=== PATIENT | female | born 1960 | race Asian ===

== ENCOUNTER → 2021-01-11 10:00 | Outpatient (BNVA) | payer OTHER, SELFPAY | PROVIDERS: Family Provider Nurse Practitioner Family; PCP Nurse Practitioner Family; Visit Provider Internal Medicine | DX: B19.10 Unspecified viral hepatitis B without hepatic coma (principal) | CPT/HCPCS: 80053; 82105; 86705; 86706; 86709; 86803; 87340; 87517 ==

== ENCOUNTER 2021-01-15 08:04 | Outpatient (CLI) | payer OTHER, SELFPAY ==
--- NOTE | 2021-01-15 08:11 | US_ITS ---
WS: [id number] ULTRASOUND ABDOMEN LIMITED CLINICAL INFORMATION: ELEVATED LFT'S/HEPATITIS B COMPARISON: None. FINDINGS: Liver Size: Normal. Craniocaudal length: 11.3 cm. Echogenicity: Normal. Surface nodularity: None. Mass (size and location): Several small hepatic cysts largest measuring approximately 13 mm. Bile ducts Intrahepatic ducts: Normal. Common bile duct diameter: 0.4 cm. Gallbladder Gallbladder polyps. Gallstones: None. Gallbladder sludge: None. Gallbladder wall thickening: None. Pericholecystic fluid: None. Sonographic Louis sign: Absent. Pancreas Normal as visualized. Right kidney: Several simple right kidney cysts largest measuring 3.4 x 2.6x 3.1 cm Hydronephrosis: None. Size: 10.2 cm x 5.6 cm x 4.9 cm. Abdominal aorta and IVC Visualized portions are normal. Ascites: None. US/US abdomen limited [id number] IMPRESSION: 1. Gallbladder polyps. No wall thickening. Normal common bile duct. 2. Right renal cysts the largest measuring 3.4 x 2.6 x 3.1 CM. No hydronephros is in right kidney. 3. Several incidental simple right hepatic cysts. The largest measures approxi mately 13 mm.
== END 2021-01-15 08:05 | disposition home or self-care (01) ==
PROVIDERS: PCP Nurse Practitioner Family; Visit Provider Nurse Practitioner Family
DX: R79.89 Other specified abnormal findings of blood chemistry (principal); B19.10 Unspecified viral hepatitis B without hepatic coma; K76.89 Other specified diseases of liver; Q61.02 Congenital multiple renal cysts; K82.4 Cholesterolosis of gallbladder
CPT/HCPCS: 76705

== ENCOUNTER → 2021-03-09 09:19 | Outpatient (BNVA) | payer OTHER, SELFPAY | PROVIDERS: PCP Nurse Practitioner Family; Visit Provider Internal Medicine | DX: B19.10 Unspecified viral hepatitis B without hepatic coma (principal) | CPT/HCPCS: 80053; 85025 ==

== ENCOUNTER → 2021-07-09 08:59 | Outpatient (BNVA) | payer OTHER, SELFPAY | PROVIDERS: PCP Nurse Practitioner Family; Visit Provider Internal Medicine | DX: B19.10 Unspecified viral hepatitis B without hepatic coma (principal) | CPT/HCPCS: 80053; 87517 ==

== ENCOUNTER → 2022-01-02 11:22 | Outpatient (BNVA) | payer OTHER, SELFPAY | PROVIDERS: PCP Nurse Practitioner Family; Visit Provider Internal Medicine | DX: B19.10 Unspecified viral hepatitis B without hepatic coma (principal) | CPT/HCPCS: 80053; 86705; 86706; 87340 ==

== ENCOUNTER 2022-06-25 16:02 | Outpatient (CLI) | payer OTHER, SELFPAY ==
--- NOTE | 2022-06-25 16:08 | CT_ITS ---
WS: [id number] CT NECK TECHNIQUE: Noncontrast CT of the neck with coronal and sagittal reformatted images. CLINICAL INFORMATION: MASS OF LEFT SIDE OF NECK, LOCALIZED SWELLING, MASS AND LUMP COMPARISON: None. DLP: 181.[address] scans at [facility] use at least one of these dose optimization techniques: automated e xposure control; mA and/or kV adjustment per patient size (includes targeted exams where dose is matc hed to clinical indication); or iterative reconstruction. FINDINGS: Palpable marker LEFT neck. Markedly enlarged heterogeneous multinodular thyroid. Associated mass effe ct and symmetric narrowing of the airway at the thoracic inlet. Largest nodules in the LEFT thyroid m easuring up to 3 CM. Recommend further evaluation with ultrasound thyroid. Airway narrowing measures approximately 5 mm in minimum dimension. Lung apices are well aerated. Mastoid air cells are well aerated. Paranasal sinuses are well aerated and partially visualized. Normal visualized posterior nasopharynx. Normal prevertebral fat. Beam Hard ening artifact involving the mandible due to dental artifact. A few incidental tonsillar calcificatio ns. Parotid glands and submandibular glands are normal. Sclerotic lesions involving the C2 and C7 vertebr al bodies likely benign bone islands. Mild spondylitic changes cervical spine. No cervical lymphadeno catherine. CT/CT neck wo con [id number] IMPRESSION: 1. No evidence of supraglottic or glottic mass. 2. Markedly enlarged multinodular thyroid with symmetric moderate narrowing of the airway at the thoracic inlet with a minimum dimension of 5 mm. 3. Enlarged multinodular thyroid with the largest nodules on the LEFT measurin g up to 3 cm. This can be further evaluated with thyroid ultrasound. 4. No cervical lymphadenopathy. 5. Normal salivary glands.
== END 2022-06-25 16:03 | disposition home or self-care (01) ==
LOC: RAD 16:03
PROVIDERS: PCP Nurse Practitioner Family; Visit Provider Nurse Practitioner Family
DX: E04.2 Nontoxic multinodular goiter (principal); R22.1 Localized swelling, mass and lump, neck
CPT/HCPCS: 70490

== ENCOUNTER → 2022-11-26 10:10 | Outpatient (BNVA) | payer OTHER, SELFPAY | PROVIDERS: PCP Nurse Practitioner Family; Visit Provider Internal Medicine | DX: Z76.89 Persons encountering health services in other specified circumstances (principal); B19.10 Unspecified viral hepatitis B without hepatic coma; E04.9 Nontoxic goiter, unspecified; E04.1 Nontoxic single thyroid nodule | CPT/HCPCS: 36415; 80053; 84439; 84443; 86705; 86706; 87340 ==

== ENCOUNTER → 2022-12-18 08:45 | Outpatient (BNVA) | payer OTHER, SELFPAY | PROVIDERS: PCP Family Medicine; Visit Provider Family Medicine | DX: B19.10 Unspecified viral hepatitis B without hepatic coma (principal); I10 Essential (primary) hypertension; E04.1 Nontoxic single thyroid nodule; Z76.89 Persons encountering health services in other specified circumstances; E04.9 Nontoxic goiter, unspecified | CPT/HCPCS: 80053; 81000; 87340; 87350; 87517; 87806 ==

== ENCOUNTER 2023-01-16 08:08 | Outpatient (CLI) | payer OTHER, SELFPAY ==
--- NOTE | 2023-01-16 08:00 | US_ITS ---
WS: [id number] RIGHT UPPER QUADRANT ULTRASOUND HISTORY: liver assessment due to chronic hep b COMPARISON: 01/15/2021 Liver: 12.9 cm in length. Normal size liver. Subcapsular cyst measures 1.3 x 0.9 x 1.4 cm. No solid m ass or increased vascularity. Portal Vein: Normal hepatopetal flow with monophasic waveform. Gallbladder: Normally distended gallbladder. Several nonshadowing, noncalcified masses projected to t he gallbladder lumen. One of these masses is slightly lobulated and larger in size than on the prior study. Attachment of the gallbladder wall is by a pedicle. Lobulated mass measures 11 x 8 mm. CBD: 0.4 cm Pancreas: Normal size and echogenicity. Right kidney: 10.5 cm in length. Normal size kidney. Central parapelvic cyst measures 4.1 x 2.9 x 2.8 cm. No solid mass. Aorta and IVC: Unremarkable abdominal aorta and IVC. No ascites. US/US abdomen limited [id number] IMPRESSION: 1. Noncalcified soft tissue masses project into the gallbladder lumen consiste nt with polyps. These polyps were described on the prior ultrasound. The larges t polyp is lobulated measuring 11 x 8 mm. Due to its size and appearance consid er evaluation by surgery for cholecystectomy. 2. Hepatic cysts. No solid mass.
== END 2023-01-16 08:09 | disposition home or self-care (01) ==
LOC: RAD 08:12
PROVIDERS: PCP Family Medicine; Visit Provider Family Medicine
DX: B19.10 Unspecified viral hepatitis B without hepatic coma (principal); K76.89 Other specified diseases of liver
CPT/HCPCS: 76705

== ENCOUNTER 2023-07-17 01:52 | Emergency (ER) | payer OTHER, SELFPAY ==
[2023-07-17 01:59] VITALS: BP 169/98; PULSE 118; RESP 16; TEMP 37; O2SAT 98; BMI 24.4
--- NOTE | 2023-07-17 02:01 | ECG_ITS ---
[facility] Test Date: 2023-07-17 Pat Name: Eve Vallejo Department: Room: Gender: Female Oxygen Therapist: : 1960 Requested By: Babita Esparza Order Number: [id number] Marian MD: Zeus Resendiz M.D. Measurements Intervals [place] Rate: 106 P: 44 FL: 156 QRS: 19 QRSD: 72 T: 65 QT: 325 QTc: 433 Interpretive Statements SINUS TACHYCARDIA POSSIBLE LEFT ATRIAL ENLARGEMENT [-0.1mV P-WAVE IN V1/V2] NONSPECIFIC T-WAVE ABNORMALITY ABNORMAL RHYTHM ECG No previous ECG available for comparison Electronically Signed On 07-17-2023 15:55:09 CDT by Zeus Resendiz M.D. [id number]
[2023-07-17 02:02] VITALS: BP 169/98; PULSE 114; RESP 18; O2SAT 98
--- NOTE | 2023-07-17 02:02 | W.ED.FEMALGU ---
HPI - Female Genitourinary General: Chief complaint: Urogenital-Female Stated complaint: abdomen pain, blood in urine Time Seen by Provider: 07/17/23 01:54 Source: patient Mode of arrival: ambulatory Limitations: no limitations History of Present Illness: 63-year-old female states that starting yesterday at 5 PM she has been having dysuria states anytime she urinates it is quite painful she had some slight blood in her urine as well. She denies any abdominal pain denies any pain currently its only when she urinates she denies fever denies vomiting or diarrhea. Associated symptoms: Deny abdominal pain, headache(s) or nausea Review of Systems Const: Denies: fever(s), chills, body aches or change in appetite ENMT: Denies: throat pain or dental pain Card: Denies: chest pain Resp: Denies: dyspnea GI: Denies: abdominal pain, nausea, vomiting or diarrhea : Reports: dysuria and hematuria Musc: Denies: neck pain or back pain Skin/Breast: Denies: rash Neuro: Denies: headache(s) PFSH ED PFSH: Medical History Breast screening declined Cervical cancer screening declined Colon cancer screening declined Cyst, thyroid Essential (primary) hypertension Goiter Hepatitis B Surgical History History of lumpectomy of right breast Family History (Updated 12/18/22 @ 08:39 by Estela Pineda MD) Other Family history normal Social History Smoking and tobacco status: never smoked Alcohol intake: never Substance/Drug Use: never Adopted: No Lives independently: Yes Household members: none Marital status: / Number of children: 4 Number of grandchildren: 5 service: No Current occupational status: unemployed Previous occupational history: parking lot attendant and cashier Agree to transfusion: Yes Physical Exam Const: COMMON NORMALS: no acute distress, patient oriented x3 and healthy appearing HENMT: COMMON NORMALS: normocephalic and atraumatic HEAD & SCALP: normocephalic and atraumatic Eye: COMMON NORMALS: conjunctivae normal CONJUNCTIVA: Yes conjunctivae normal Neck/C-Spine: COMMON NORMALS: full ROM and supple Chest: COMMONS NORMALS: normal inspection of the chest and normal palpation of entire chest wall Resp: COMMON NORMALS: normal respiratory effort, No retractions, No use of accessory muscles and clear to auscultation bilaterally AUSCULTATION: clear to auscultation bilaterally Cardio: COMMON NORMALS: regular rhythm and No murmurs present (Cardio) RATE: tachycardic RHYTHM: regular rhythm GI: COMMON NORMALS: Normal to inspection, nondistended, normoactive bowel sounds present, Soft to palpation, non-tender and no masses PALPATION: Yes Soft to palpation Extremity: COMMON NORMALS: normal to inspection and full ROM Neuro: COMMON NORMALS: patient oriented x3, moves all extremities and no focal motor deficits Psych: COMMON NORMALS: mental status grossly normal, Normal thought process present and cooperative THOUGHT PROCESS: Normal thought process present Skin: COMMON NORMALS: no rashes or lesions noted and no wounds GENERAL SKIN EXAM: no rashes or lesions noted Course Vital Signs: Vital signs: Vital Signs Temperature 98.6 F 07/17/23 01:59 Pulse Rate 114 H 07/17/23 02:02 Respiratory Rate 18 07/17/23 02:02 Blood Pressure 169/98 07/17/23 02:02 Pulse Oximetry 98 07/17/23 02:02 Oxygen Delivery Me thod Room Air 07/17/23 02:02 MDM - Female Medical Decision Making Patient presents with hematuria along with dysuria UA is consistent with a UTI she has no pain on exam no pain at all no signs of a kidney stone we will place her on Keflex she is stable for discharge she is to follow-up with PCP and return if worsening. Medical Records I reviewed the patient's medical records. Lab Data I reviewed the patient's lab results. 07/17/23 02:20 07/17/23 02:20 Laboratory Results WBC 13.42 10^3/uL (3.29-11.43) H 07/17/23 02:20 RBC 4.55 10^6/uL (3.85-5.65) 07/17/23 02:20 Hgb 13.70 g/dL (11.27-16.99) 07/17/23 02:20 Hct 40.4 % (36-47) 07/17/23 02:20 MCV 88.8 fl (85-98) 07/17/23 02:20 MCH 30.1 pg (27-33) 07/17/23 02:20 MCHC 33.9 g/dL (30-55) 07/17/23 02:20 RDW 13.1 % (12.1-15.1) 07/17/23 02:20 Plt Count 255 10^3/cmm (157-399) 07/17/23 02:20 MPV 8.9 fL (7.4-10.4) 07/17/23 02:20 Neut % (Auto) 80.6 % 07/17/23 02:20 Lymph % (Auto) 8.1 % 07/17/23 02:20 [place] % (Auto) 7.9 % 07/17/23 02:20 Eos % (Auto) 2.3 % 07/17/23 02:20 Baso % (Auto) 0.7 % 07/17/23 02:20 Neut # (Auto) 10.81 10^3/uL (1.8-7.7) H 07/17/23 02:20 Lymph # (Auto) 1.1 10^3/uL (0.8-4.8) 07/17/23 02:20 [place] # (Auto) 1.1 10^3/uL (0.2-0.9) H 07/17/23 02:20 Eos # (Auto) 0.3 10^3/uL (0.0-0.8) 07/17/23 02:20 Baso # (Auto) 0.1 10^3/uL (0.0-0.1) 07/17/23 02:20 Nucleated RBC % (auto) 0 % 07/17/23 02:20 Nucleated RBCs # 0.0 /100WBC 07/17/23 02:20 Sodium 139 mmol/L (136-145) 07/17/23 02:20 Potassium 3.8 mmol/L (3.5-5.1) 07/17/23 02:20 Chloride 102 mmol/L (98-107) 07/17/23 02:20 Carbon Dioxide 22 mmol/L (22-29) 07/17/23 02:20 Anion Gap 18.8 (5-19) 07/17/23 02:20 BUN 9 mg/dL (8-23) 07/17/23 02:20 Creatinine 0.9 mg/dL (0.5-0.9) 07/17/23 02:20 GFR Calculation 63.4 mL/min (90-130) L 07/17/23 02:20 Glucose 141 mg/dL (65-115) H 07/17/23 02:20 Calculated Osmolality 289 mOsm/kg (285-295) 07/17/23 02:20 Calcium 9.4 mg/dL (8.5-10.5) 07/17/23 02:20 Total Bilirubin 0.5 mg/dL (0.15-1.2) 07/17/23 02:20 AST 27 U/L (0-32) 07/17/23 02:20 ALT 24 U/L (0-33) 07/17/23 02:20 Alkaline Phosphatase 108 U/L (35-105) H 07/17/23 02:20 Total Protein 8.3 g/dL (6.6-8.7) 07/17/23 02:20 Albumin 5.2 g/dL (3.5-5.2) 07/17/23 02:20 Globulin 3.1 g/dL (1.3-4.6) 07/17/23 02:20 Lipase 64 U/L (13-60) H 07/17/23 02:20 Urine Color Light yellow (Yellow) 07/17/23 02:00 Urine Appearance Cloudy (CLEAR) A 07/17/23 02:00 Urine pH 5 (5-7) 07/17/23 02:00 Ur Specific [place] 1.010 (1.005-1.030) 07/17/23 02:00 Urine Protein 1+ (Negative) H 07/17/23 02:00 Urine Glucose (UA) Norm (Normal) 07/17/23 02:00 Urine Ketones Negative (Negative) 07/17/23 02:00 Urine Blood 3+ (Negative) H 07/17/23 02:00 Urine Nitrate Negative (Negative) 07/17/23 02:00 Urine Bilirubin Neg (Negative) 07/17/23 02:00 Urine Urobilinogen Neg mg/dL (Negative) 07/17/23 02:00 Ur Leukocyte Esterase 2+ (Negative) H 07/17/23 02:00 Urine RBC 40-50 /hpf (0-2) H 07/17/23 02:00 Urine WBC 40-55 /hpf (0-5) H 07/17/23 02:00 Ur Squamous Epith Cells None /hpf (0-5) 07/17/23 02:00 Amorphous Sediment Not Reportable 07/17/23 02:00 Urine Bacteria Trace /hpf (NONE) 07/17/23 02:00 No radiology studies performed this visit Discharge Plan Discharge Patient Disposition: Home Clinical Impression: Urinary tract infection Condition: Stable Prescriptions: New cephalexin 500 mg capsule 500 mg PO TID 7 Days Qty: 21 0RF No Action amlodipine 5 mg tablet 5 mg PO DAILY Ocuvite Adult 50 Plus 250-5-1 mg capsule 1 cap PO DAILY Algal [place]-3 DHA 200 mg capsule PO DAILY entecavir 0.5 mg tablet 0.5 mg PO DAILY Qty: 90 3RF Discharge Orders: Discharge ED (Routine); Ordered 07/17/23 Ordered By: Babita Esparza Referrals: Estela Pineda MD [Primary Care Provider] - 1-3 days Discharge Diet: Advance as tolerated Discharge Activity: Resume usual activity Patient Instructions: Urinary Tract Infection in Women (ED) Coding Level of Care Code ED Vacuum Tester Cans for Crystal Llanos
[2023-07-17 02:16] LABS: Add Urine Microscopic? YES; Bilirubin Urine Neg (Negative); Blood Urine 3+ (Negative); Glucose Urine UA Norm (Normal); Ketones Urine Negative (Negative); Leukocyte Esterase Urine 2+ (Negative); Nitrate Urine Negative (Negative); Protein Urine 1+ (Negative); Urine Appearance Cloudy (CLEAR); Urine Color Light yellow (Yellow); Urobilinogen Urine Neg (Negative); pH Urine 5 (5-7)
[2023-07-17] MEDS: sodium chloride 0.9% 1,000 ML 999 ML IV (02:16)
[2023-07-17 02:17] LABS: Add Urine Culture? Yes; Bacteria Urine TRACE /hpf; RBC Urine 40-50 /hpf (0-2); WBC Urine 40-55 /hpf (0-5)
[2023-07-17 02:24] LABS: Basophils # 0.1 10^3/uL (0.0-0.1); Basophils % 0.7 %; Eosinophils # 0.3 10^3/uL (0.0-0.8); Eosinophils % 2.3 %; Hematocrit 40.4 % (36-47); Lymphocytes # 1.1 10^3/uL (0.8-4.8); Lymphocytes % 8.1 %; Mean Corpuscular HGB Conc 33.9 g/dL (30-55); Mean Corpuscular Hemoglobin 30.1 pg (27-33); Mean Corpuscular Volume 88.8 fl (85-98); Mean Platelet Volume 8.9 fL (7.4-10.4); Monocytes # 1.1 10^3/uL (0.2-0.9); Monocytes % 7.9 %; Neutrophils # 10.81 10^3/uL (1.8-7.7); Neutrophils % 80.6 %; Nucleated Red Blood Cells % 0 %; Platelet Count 255 10^3/cmm (157-399); Red Blood Count 4.55 10^6/uL (3.85-5.65); Red Cell Distribution Width 13.1 % (12.1-15.1); White Blood Count 13.42 10^3/uL (3.29-11.43)
[2023-07-17] MEDS: cefTRIAXone 1,000 MG in sodium chloride 0.9% (plus) 50 ML 100 MG IV (02:27)
[2023-07-17 02:52] LABS: Alanine Aminotransferase 24 U/L (0-33); Albumin Level 5.2 g/dL (3.5-5.2); Alkaline Phosphatase 108 U/L (35-105); Anion Gap 18.8 (5-19); Aspartate Amino Transferase 27 U/L (0-32); Carbon Dioxide 22 mmol/L (22-29); Chloride 102 mmol/L (98-107); Globulin 3.1 g/dL (1.3-4.6); Glucose 141 mg/dL (65-115); Lipase 64 U/L (13-60); Potassium 3.8 mmol/L (3.5-5.1); Sodium 139 mmol/L (136-145); Total Protein 8.3 g/dL (6.6-8.7)
[2023-07-17 03:10] LABS: Blood Urea Nitrogen 9 mg/dL (8-23); Calcium 9.4 mg/dL (8.5-10.5); Glomerular Filtration Rate 63.4 mL/min (90-130); Osmolality Calculated 289 mOsm/kg (285-295); Total Bilirubin 0.5 mg/dL (0.15-1.2)
[2023-07-17 03:18] VITALS: BP 142/89; PULSE 103; RESP 18; O2SAT 98
== END 2023-07-17 03:20 | disposition home or self-care (01) ==
PROVIDERS: Emergency Provider Emergency Medicine; PCP Family Medicine
DX: N39.0 Urinary tract infection, site not specified (principal); I10 Essential (primary) hypertension; Z86.19 Personal history of other infectious and parasitic diseases
CPT/HCPCS: 80053; 81001; 83690; 85025; 87077; 87086; 87186; 93005; 96365; 99284; J0696; J7030

== ENCOUNTER 2023-12-04 11:34 | Outpatient (CLI) | payer OTHER, SELFPAY ==
--- NOTE | 2023-12-04 11:37 | XR_ITS ---
WS: [id number] Examination: XR cervical spine 3V* [id number] Reason for Exam: radicular pain r arm Date: 12/04/2023 Comparison: None. Findings: The TENZIN and the C1-2 relationship are intact. There is no prevertebral swelling. There is no wedging or compression. There is no subluxation Degenerative changes are identified with mild disc space narrowing at C5-6. Small anterior posterior osteophytes are identified. Impression: There is no compression or subluxation Mild C5-6 degenerative changes are present.
--- NOTE | 2023-12-04 11:37 | XR_ITS ---
WS: [id number] Examination: XR shoulder RT min 2V* [id number] Reason for Exam: radicular pain down r arm Date: 12/04/2023 Comparison: None. Findings: The bone density is maintained. There is no destruction. There is no displaced fracture. There is no dislocation Mild AC joint degenerative changes are present. Impression: No acute bony abnormalities identified. Mild AC joint degenerative changes are present.
== END 2023-12-04 11:35 | disposition home or self-care (01) ==
LOC: RAD 11:34
PROVIDERS: PCP Family Medicine; Visit Provider Family Medicine
DX: M79.2 Neuralgia and neuritis, unspecified (principal); M19.011 Primary osteoarthritis, right shoulder; M47.812 Spondylosis without myelopathy or radiculopathy, cervical region; M25.78 Osteophyte, vertebrae; E04.9 Nontoxic goiter, unspecified; B19.10 Unspecified viral hepatitis B without hepatic coma
CPT/HCPCS: 72040; 73030; 80053; 84439; 84443; 85025; 87517

== ENCOUNTER 2023-12-09 06:46 | Outpatient (CLI) | payer OTHER, SELFPAY ==
--- NOTE | 2023-12-09 07:30 | US_ITS ---
WS: [id number] RIGHT UPPER QUADRANT ULTRASOUND HISTORY: hep b, gallbladder polyp f/u COMPARISON: 01/16/2023 Liver: 11.1 cm in length. Normal size liver. Subcapsular cyst measures 1.3 x 1.3 x 1.0 cm. No solid m ass. Portal Vein: Normal hepatopetal flow with monophasic waveform. Gallbladder: Nonshadowing foci within the gallbladder. Most consistent with hyperplastic polyps. The largest measures 8 x 7 x 4 mm. CBD: 0.3 cm Pancreas: Normal size and echogenicity. Right kidney: 10.1 cm in length. Normal size kidney. Cyst in the lower pelvis measures 3.8 x 3.4 x 3. 3 cm. No solid mass identified. There is mild cortical thinning at the site of the cyst. Aorta and IVC: Unremarkable abdominal aorta and IVC. No ascites. IMPRESSION: 1. No cholelithiasis. 2. Numerous nonshadowing foci within the gallbladder most consistent with hyperplastic polyps. The l argest measures 8 x 7 x 4 mm. These polyps have been present on prior studies without significant inc rease in size. 3. No bile duct dilatation. 4. Parapelvic cyst RIGHT kidney, 3.8 x 3.4 x 3.3 cm.
== END 2023-12-09 06:47 | disposition home or self-care (01) ==
LOC: RAD 06:47
PROVIDERS: PCP Family Medicine; Visit Provider Family Medicine
DX: K82.4 Cholesterolosis of gallbladder (principal); B19.10 Unspecified viral hepatitis B without hepatic coma; N28.1 Cyst of kidney, acquired
CPT/HCPCS: 76705

== ENCOUNTER → 2025-01-25 12:48 | Outpatient (BNVA) | payer OTHER, SELFPAY | PROVIDERS: PCP Family Medicine; Visit Provider Family Medicine | DX: B19.10 Unspecified viral hepatitis B without hepatic coma (principal); E04.1 Nontoxic single thyroid nodule | CPT/HCPCS: 80053; 82105; 84443; 85025; 87517 ==